=== PATIENT | female | born 1995 | race Caucasian/White ===

== ENCOUNTER → 2021-11-27 | Outpatient (CLI) | payer SELFPAY | LOC: LAB 13:35 | DX: O03.9 Complete or unspecified spontaneous abortion without complication (principal) | CPT/HCPCS: 36415; 84702 ==

== ENCOUNTER → 2021-11-30 | Outpatient (CLI) | payer SELFPAY | LOC: LAB 11:35 | DX: O03.9 Complete or unspecified spontaneous abortion without complication (principal) | CPT/HCPCS: 36415; 84702 ==

== ENCOUNTER → 2022-03-16 | Day surgery (SDC) | payer OTHER ==
[~2022-03-16] MED LIST: IBUPROFEN800 MG PO; PERCOCET 5/325 T1 EA PO; ZYRTEC10 M3 PO
[2022-03-16 08:50] LABS: HEMOGLOBIN 13.8 gm/dl (12.3-15.3); RED BLOOD COUNT 4.24 M/UL (4.00-5.10); WHITE BLOOD COUNT 6.6 K/UL (4.5-11.0)
== END | disposition home or self-care (01) ==
LOC: OR 08:02
PROVIDERS: Obstetrics & Gynecology
DX: O02.1 Missed abortion (principal); F17.210 Nicotine dependence, cigarettes, uncomplicated
CPT/HCPCS: 36415; 81001; 85025; 86850; 86900; 86901; J1100; J1885; J2001; J2210; J2250; J2270; J2370; J2405; J2704; J3010; J7030; J7120

== ENCOUNTER → 2022-05-17 | Outpatient (CLI) | payer OTHER | LOC: EMI 14:26 | DX: M62.81 Muscle weakness (generalized) (principal); M51.37 Other intervertebral disc degeneration, lumbosacral region | CPT/HCPCS: 72141; 72146; 72148 ==

== ENCOUNTER → 2022-05-20 | Outpatient (CLI) | payer OTHER | LOC: EMI 09:00 | DX: M62.81 Muscle weakness (generalized) (principal) | CPT/HCPCS: 70553; A9577 ==

== ENCOUNTER → 2022-06-02 | Outpatient (CLI) | payer OTHER | LOC: MRI 10:00 | DX: R93.7 Abnormal findings on diagnostic imaging of other parts of musculoskeletal system (principal) | CPT/HCPCS: 72157; A9577 ==